=== PATIENT | female | born 1965 | race Caucasian/White ===

== ENCOUNTER → 2016-12-19 | Outpatient (CLI) | payer OTHER ==
[~2016-12-19] MED LIST: ADVAIR 250/5028 PUFF IN; DIAZEPAM10 M1 PO; ESTRADIOL1 MG PO; LORTAB 5/500 501 TAB PO; MOTRIN600 MG PO; VENTOLIN H0.09 MG/Ac IH
--- NOTE | 2016-12-19 16:29 | RADIOLOGY REPORT PS360 ---
KNEE-3 VIEWS-RT HISTORY: S/P FALL, RT KNEE PAIN COMPARISON: 12/13/2015. FINDINGS: No acute fracture or dislocation. Minimal hypertrophic change medial compartment. IMPRESSION: No change with no acute finding
== END ==
LOC: RAD 14:34
DX: M25.561 Pain in right knee (principal); W19.XXXA Unspecified fall, initial encounter